=== PATIENT | female | born 2000 | race Caucasian/White ===

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

== ENCOUNTER 2022-10-07 00:09 | Emergency (ER) | payer BC ==
[2022-10-07] MEDS ORDERED: Sodium Chloride 0.9% 1,000 ML IV ONE (00:56)
[2022-10-07] MEDS ORDERED: Sodium Chloride 0.9% 2.5 ML Syringe FLUSH PRN (00:56)
[2022-10-07] MEDS ORDERED: Ondansetron 4 MG/2 ML SDV IVPUSH ONE (00:56)
[2022-10-07] MEDS ORDERED: Sodium Chloride 0.9% 10 ML Syringe FLUSH PRN (00:56)
[2022-10-07 02:25] LABS: CARBON DIOXIDE,CO2 23.4 mmol/L (21.0-32.0); POTASSIUM,K 4.5 mmol/L (3.5-5.1)
== END 2022-10-07 03:34 | disposition home or self-care (01) ==
LOC: MW.ED 00:09
DX: F10.929 Alcohol use, unspecified with intoxication, unspecified (principal); Y90.6 Blood alcohol level of 120-199 mg/100 ml
CPT/HCPCS: 36415; 80053; 80307; 81001; 84703; 85025; 87086; 87088; 87186; 96361; 96374; 99284; J2405; J3490; J7030